=== PATIENT | female | born 1950 | race Caucasian/White ===

== ENCOUNTER 2025-02-16 15:01 | Emergency (ER) | payer MEDICARE, BC, SELFPAY ==
[2025-02-16 15:02] VITALS: BMI 25.6
[2025-02-16 15:04] VITALS: BP 133/74
[2025-02-16 15:32] LABS: Hematocrit 39.7 % (37.0-47.0); Hemoglobin 12.9 g/dL (12.0-16.0); Mean Corp Hgb Conc. 32.5 g/dL (33.0-37.0); Mean Corpuscular Volume 88.4 fL (81.0-99.0); Nucleated Red Blood Cells % 0 %; Platelet Count 186 10^3/uL (130-400); Red Cell Dist. Width 12.8 % (11.5-14.5)
[2025-02-16 15:39] LABS: ALT (SGPT) 17 U/L (0-35); AST (SGOT) 26 U/L (14-36); Albumin 4.6 g/dl (3.5-5.0); Alkaline Phosphatase 61 U/L (38-126); Blood Urea Nitrogen 15 mg/dl (7-17); Calcium 10.0 mg/dl (8.4-10.2); Carbon Dioxide 29 mmol/L (22-30); Chloride 100 mmol/L (98-107); Glucose 109 mg/dl (70-99); Potassium 3.9 mmol/L (3.5-5.1); Sodium 135 mmol/L (135-145); Total Protein 7.4 g/dl (6.3-8.2); eGFR > 60.00
[2025-02-16] MEDS: OMNIPAQUE 50 ML PO (17:42)
[2025-02-16] MEDS: ZOFRAN ODT (ORALLY DISINTEGRATING) 4 MG PO (17:42)
[2025-02-16 17:50] VITALS: BP 127/62
[2025-02-16 18:00] VITALS: BP 108/91
[2025-02-16 18:09] LABS: Urine Character Clear (Clear)
--- NOTE | 2025-02-16 18:27 | ED.GENMED ---
History of Present Illness
General
Chief Complaint: Abdominal Pain
Source: patient
Exam Limitations: none
Time Seen by Provider: 02/16/25 17:13
Nursing documentation reviewed up to this point in time: agreed with
History of Present Illness
History of Present Illness:
74-year-old female w h/o CAD, Thyroidectomy, Pacemaker, presents with abdominal pain, nausea, and changes in bowel movements. The symptoms began several weeks ago, initially presenting as abdominal discomfort and nausea, particularly after eating.
Approximately four weeks ago, the patient noticed passing mucus instead of a normal bowel movement. The mucus was described as floating and occasionally appeared orangey in color.
Last night, after eating a turkey salad sandwich, the patient experienced severe cramping and diarrhea, and broke out in a sweat, accompanied by visible blood in the toilet, distinctly different from the previously described orange mucus. The
patient associated this episode with potential food poisoning. Concerned about their condition, security personnel checked the patients vital signs upon request. Following a consultation with their doctor earlier today, the patient was advised to
visit the emergency room for further evaluation, including imaging studies.
No fever, chills, respiratory difficulties, chest pain, or urinary symptoms were reported.
Past History
Past History
ED Past Medical History: Hypercholesterolemia and Hypothyroidism
ED Past Surgical History: Cardiac (Permanent pacemaker) and Other (thyroidectomy)
Patient has exhibited threatening behavior?: No
PSI?: No
Social History
Tobacco: Non-smoker
Alcohol: None
Drug: None
Personal: Single
Living: assisted living
Employment: Retired
Family History
Family History: Diabetes
Review of Systems
Review of Systems
Allergies reviewed?: Yes
All Other Systems: ROS reviewed and negative except as documented in HPI and ROS
Constitutional: Denies fever
ABD/GI: Reports abdominal pain, bloody stools and other (mucus stools); Denies nausea or vomiting
Musculoskeletal: Reports no symptoms
Skin: Reports no symptoms
Neurological: Reports no symptoms
Phy Exam
Physical Exam
Physical Exam:
GENERAL: No acute distress. A&Ox3.
CONSTITUTIONAL: Afebrile.
EYES: clear, conjunctivae normal
ENMT: moist mucus membranes, Pharynx nl
RESPIRATORY: Regular respirations, nonlabored, lungs clear.
CARDIOVASCULAR: Regular rate and rhythm, no murmurs, no rubs.
GI: Soft, nontender, normal BS
MUSCULOSKELETAL: Moves with ease. Well perfused.
SKIN: Warm, dry, pink
PSYCH: Normal mood and affect. Well kept, interactive and appropriate
NEUROLOGIC: Awake, alert and oriented. No focal neurological deficits
Course
Orders/Labs/Results
Orders:
Orders
02/16/25 15:16
Complete Blood Count/With Diff Urgent
Comprehensive Metabolic Panel Urgent
02/16/25 17:36
Iohexol [Omnipaque] See Protocol PO NOW STA
Ondansetron Orally Disint [Zofran Odt (Orally Disintegrating)] 4 mg PO NOW STA
02/16/25 17:42
Iohexol [Omnipaque] See Protocol PO NOW STA
02/16/25 17:43
CT Abd/pel (oral only)-DH Only Urgent
Comment: allergy to steroids and 'IV dye' so cannot prep
Reason For Exam: abd pain, mucus and blood stools
02/16/25 17:53
Urinalysis Reflex To Culture Urgent
Date Specimen was Collected: 02/16/25
Time Specimen was Collected: 17:45
Urine Microscopic Reflex Cult Urgent
Urine Culture Urgent
DAJA Source: U
Specimen Description:
Date Specimen was Collected: 02/16/25
Time Specimen was Collected: 17:45
02/16/25 21:06
Amoxicillin 875 mg/Clav 125 mg [Augmentin 875 mg/125 mg] 1 tablet PO NOW STA
Abnormal Lab Results
02/16/25 02/16/25
15:16 17:53
MCHC 32.5 L g/dL
(33.0-37.0)
Absolute Monos (auto) 0.7 H 10^3/uL
(0.1-0.6)
Lymphocytes % 18.3 L %
(20.5-51.1)
Monocytes % 10.4 H %
(1.7-9.3)
Glucose 109 H mg/dl
(70-99)
Urine Ketones 1+ A
(Negative)
Ur Occult Blood Reflex 4+ A
(Negative)
Leukocyte Esterase Rfl 1+ A
(Negative)
02/16/25 15:16
02/16/25 15:16
Vital Signs
Initial and Last Documented VS:
Initial Vital Signs
Temp Pulse Resp BP Pulse Ox
98.4 F 79 20 133/74 79
02/16/25 15:04 02/16/25 15:04 02/16/25 15:04 02/16/25 15:04 02/16/25 15:04
Last Documented Vital Signs
Temp Pulse Resp BP Pulse Ox
98.2 F 76 17 116/77 98
02/16/25 20:49 02/16/25 18:33 02/16/25 18:33 02/16/25 19:00 02/16/25 19:45
MDM/Problems Addressed
Differential Diagnosis Includes:
1. Gastrointestinal bleeding
2. Diverticulitis
3. Inflammatory bowel disease
4. Gastroenteritis
5. Colitis
6. Peptic ulcer disease
7. Colorectal cancer
8. Celiac disease
9. Ischemic bowel disease
10. Food poisoning
MDM/Problems Addressed:
74-year-old female w h/o CAD, Thyroidectomy, Pacemaker, presents with abdominal pain, nausea, and changes in bowel movements. The symptoms began several weeks ago, initially presenting as abdominal discomfort and nausea, particularly after eating.
Approximately four weeks ago, the patient noticed passing mucus instead of a normal bowel movement. The mucus was described as floating and occasionally appeared orangey in color.
Last night, after eating a turkey salad sandwich, the patient experienced severe cramping and diarrhea, and broke out in a sweat, accompanied by visible blood in the toilet, distinctly different from the previously described orange mucus. The
patient associated this episode with potential food poisoning. Concerned about their condition, security personnel checked the patients vital signs upon request. Following a consultation with their doctor earlier today, the patient was advised to
visit the emergency room for further evaluation, including imaging studies.
No fever, chills, respiratory difficulties, chest pain, or urinary symptoms were reported.
Afebrile, NAD
Pt has Methylprednisolone listed as allergy. She has been told to 'never ever' get IV dye as she had a rash up her arm over 20 yrs ago with IV contrast
Unable to tolerate steroids, will get CT w PO contrast only.
CBC:normal
CMP normal
U/A: No infection 9:00 PM:
CAT scan abdomen pelvis with p.o. only contrast radiology report read:
IMPRESSION:
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
No renal or ureteral calculus. No obstructive uropathy. Renal cysts.
Mild diverticulosis. Findings suspicious for subtle low-grade localized acute inflammation/diverticulitis in the proximal sigmoid colon. Findings also suspicious for nonspecific colitis in the region of the splenic flexure and proximal to mid
descending colon.
Plan: Treat for mild diverticulitis/colitis
*Pulse Oximetry
SaO2: 79
Oxygen Mode of Delivery: Room air
Patient hypoxic: not evaluated
*Critical Care Note
Total Time (30-74mins, 75-104mins- exclusive of procedures): Not Applicable
ED Attending Note
-
Portions of this chart may have been created with voice recognition software.� Occasional wrong word or��sound alike� substitutions may have occurred due to the inherent limitations of voice recognition software.
Discharge Plan
Departure
Patient Disposition: Home (Routine Discharge)
Date of Disposition: 02/16/25
Time of Disposition: 21:00
Patient with high blood pressure during this ER visit?: No
Condition: Good
Discharge Problem:
Diverticulitis
Instructions: Clear Liquid Diet, Diverticulitis (DC), Abdominal Pain
Prescriptions:
New
amoxicillin-pot clavulanate 875-125 mg tablet
1 tab PO BID Qty: 14 0RF
No Action
propranolol 60 mg Capsule,Extended Release 24 Hr
60 mg PO DAILY
calcium carbonate [Tums E-X] 300 mg (750 mg) Tablet,Chewable
300 mg PO BID PRN (Reason: stomach)
levothyroxine [Synthroid] 50 mcg Tablet
50 mcg PO DAILY
multivitamin Capsule
1 cap PO DAILY
cholecalciferol (vitamin D3) [Vitamin D3] 50 mcg (2,000 unit) Tablet
50 mcg PO DAILY
ibuprofen [Advil] 200 mg Tablet
200 mg PO Q6H PRN (Reason: pain)
Advil Sinus Congestion-Pain 200-10 mg Tablet
PO
Referrals:
Farhana Smalls DO [Family Provider, Internal Medicine]
Alberto Paniagua DO [Active, Gastroenterology] - Call in 1-3 days for appt
Activity Restrictions/Additional Instructions:
As we discussed, you have a very mild case of diverticulitis.
I sent a prescription to your pharmacy for Augmentin 875 mg take twice daily for 7 days
I provided you with the name of a GI doctor to follow-up with, please discuss follow-up with your doctor
Take a probiotic daily while you are on the antibiotic
Interventions
Interventions:
*Risk Screen - Suicide Last Done: 02/16/25 15:08
*General Assessment Last Done: 02/16/25 20:50
*Neglect/Abuse Screening Last Done: 02/16/25 15:08
*ED- Fall Risk Assessment Last Done: 02/16/25 20:50
*ED COVID-19 Vaccine History Last Done: 02/16/25 20:50
[employer] Assessment Last Done: 02/16/25 18:33
Discharge Date and Time
Print Language: [id number]
[2025-02-16 18:28] LABS: Urine Red Blood Cell 0-2 /HPF (0-2); Urine Urothelial Cell 0-2 /LPF (FEW)
[2025-02-16 19:00] VITALS: BP 116/77
[2025-02-16 20:48] VITALS: BP 109/60
[2025-02-16 21:00] VITALS: BP 108/56
[2025-02-16] MEDS: AUGMENTIN 875 MG/125 MG 1 TABLET PO (21:17)
== END 2025-02-16 23:33 | disposition home or self-care (01) ==
LOC: EMR 15:01
PROVIDERS: Registered Nurse; EMERGENCY PHYSICIAN Emergency Medicine; FAMILY PHYSICIAN Internal Medicine
DX: K57.32 Diverticulitis of large intestine without perforation or abscess without bleeding (principal); K52.9 Noninfective gastroenteritis and colitis, unspecified; N28.1 Cyst of kidney, acquired; E78.00 Pure hypercholesterolemia, unspecified; E89.0 Postprocedural hypothyroidism; I25.10 Atherosclerotic heart disease of native coronary artery without angina pectoris; Z95.0 Presence of cardiac pacemaker
CPT/HCPCS: 99284; 74176; 80053; 81003; 81015; 85025; 87086